=== PATIENT | male | born 1990 ===

== ENCOUNTER 2017-06-06 11:59 | Emergency (ER) | payer OTHER ==
[2017-06-06 12:33] VITALS: BP 138/89; PULSE 73; TEMP 97.9; O2SAT 99
[2017-06-06] MEDS ORDERED: Lidocaine 5% Patch TD STA (12:56)
--- NOTE | 2017-06-06 12:56 | C.PDOC ---
History Of Present Illness 26 year old male presents to the ED for evaluation after he had a left shoulder injury [employer]. 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 Patient is now c/o pain and limited movement to his left shoulder. He denies head injury, LOC, and has no other symptoms at this time. - HPI Time Seen by Provider: 06/06/17 12:39 Chief Complaint (Nursing): Upper Extremity Problem/Injury History Per: Patient History/Exam Limitations: no limitations Onset/Duration Of Symptoms: Hrs Location Of Injury: Left: Shoulder Additional History Per: Patient Past Medical History Reviewed: Historical Data, Nursing Documentation, Vital Signs Vital Signs: Last Vital Signs Temp 97.9 F 06/06/17 12:29 Pulse 73 06/06/17 12:29 Resp 18 06/06/17 12:29 BP 138/89 06/06/17 12:29 Pulse Ox 99 06/06/17 13:10 - Medical History PMH: No Chronic Diseases Surgical History: No Surg Hx Family History: States: Unknown Family Hx - Social History Hx Alcohol Use: Yes Hx Substance Use: No - Immunization History Hx Tetanus Toxoid Vaccination: No Hx Influenza Vaccination: No Hx Pneumococcal Vaccination: No Review Of Systems Musculoskeletal: Positive for: Shoulder Pain (left ) Neurological: Negative for: Other (head injury, LOC ) Physical Exam - Physical Exam Appears: Non-toxic, No Acute Distress Skin: Normal Color, Warm, Dry, Other (contusion dong to back of left shoulder. skin intact) Extremity: No Normal ROM (limited, secondary to pain with abduction), Capillary Refill (less than 2 seconds ), No Deformity, Swelling (mild, to anterior aspect of left shoulder ), Other (pain reproducible at less than 90 degrees. full flexion and internal and external rotation ) Neurological/Psych: Oriented x3, Normal Speech, Normal Cognition, Normal Sensation ED Course And Treatment O2 Sat by Pulse Oximetry: 99 (on RA) Pulse Ox Interpretation: Normal - Other Rad L SHOULDER X-Ray: Interpreted by Me (NEG) Progress Note: Left shoulder XR ordered and reviewed. Lidoderm TD and Tylenol PO administered. Disposition Counseled Patient/Family Regarding: Studies Performed, Diagnosis, Need For Followup, Rx Given - Disposition Referrals: [facility] [Outside] [facility] [Outside] [facility] [Other] Disposition: HOME/ ROUTINE Disposition Time: 13:09 Condition: IMPROVED Prescriptions: Cyclobenzaprine [Flexeril] 10 mg PO TID #15 tab Ibuprofen [Motrin] 600 mg PO Q6 #30 tab Lidocaine 5% [Lidoderm] 1 ea TD PRN PRN #10 patch PRN Reason: Pain, Moderate (4-7) Instructions: Shoulder Sprain, Contusion (DC) Forms: [facility] (Austrian), Work Excuse - Clinical Impression Clinical Impression: Shoulder contusion - Scribe Statement The provider has reviewed the documentation as recorded by the Scribe (Ekta Carmen) Provider Attestation: All medical record entries made by the Scribe were at my direction and personally dictated by me. I have reviewed the chart and agree that the record accurately reflects my personal performance of the history, physical exam, medical decision making, and the department course for this patient. I have also personally directed, reviewed, and agree with the discharge instructions and disposition.
--- NOTE | 2017-06-06 13:13 | RAD ---
PROCEDURE: Radiographs of the Left Shoulder HISTORY: TRAUMA COMPARISON: No prior. FINDINGS: BONES: Normal. No fracture. JOINTS: Normal. Glenohumeral and acromioclavicular joints preserved. No osteoarthritis. SOFT TISSUES: Normal. OTHER FINDINGS: None. IMPRESSION: Normal radiographs of the left shoulder.
[2017-06-06] MEDS ORDERED: Lidocaine 5% Patch TD ONE (13:19)
[2017-06-06 13:32] VITALS: RESP 20
== END 2017-06-06 13:31 | disposition home or self-care (01) ==
LOC: C.ER 11:59
DX: S40.012A Contusion of left shoulder, initial encounter (principal); W22.8XXA Striking against or struck by other objects, initial encounter; Y99.0 Civilian activity done for income or pay